=== PATIENT | female | born 1970 | race Caucasian/White ===

== ENCOUNTER 2020-05-08 17:31 | Observation (INO) | payer OTHER ==
[~2020-05-08] VITALS: Ht 152.4 cm; Wt 80.7 kg
[2020-05-08] MEDS ORDERED: ASPI-1822 PO (18:03)
[2020-05-08] MEDS ORDERED: PNV11TAB3 PO (18:03)
[2020-05-08 18:58] VITALS: BP 130/76
== END 2020-05-08 19:45 | disposition home or self-care (01) ==
LOC: MFCC 17:31
PROVIDERS: ADMIT Obstetrics & Gynecology; ATTEND Obstetrics & Gynecology
DX: O46.93 Antepartum hemorrhage, unspecified, third trimester (principal); O09.523 Supervision of elderly multigravida, third trimester; Z3A.33 33 weeks gestation of pregnancy
CPT/HCPCS: 81000; G0378